=== PATIENT | male | born 1955 | race Caucasian/White ===

== ENCOUNTER 2020-12-26 08:56 | Outpatient (REF) | payer MEDICARE, OTHER, SELFPAY ==
[2020-12-26 12:04] LABS: Estimated Average Glucose 212 mg/dL
[2020-12-26 12:54] LABS: Alanine Aminotransferase 27 U/L (0-40); Albumin Level 4.3 g/dL (3.5-5.0); Alkaline Phosphatase 71 U/L (39-117); Anion Gap 12 (12-20); Aspartate Amino Transferase 27 U/L (5-37); Bilirubin Total 0.7 mg/dL (0.0-1.0); Blood Urea Nitrogen 30 mg/dL (9-16); Calcium 9.8 mg/dL (8.4-10.2); Carbon Dioxide 29 mmol/L (22-29); Chloride 104 mmol/L (96-108); Cholesterol 250 mg/dL; Estimated Glomerular Filt Rate > 60; Glucose Fasting 239 mg/dL (60-99); HDL Cholesterol 55 mg/dL; LDL Cholesterol Calculated 183 mg/dl; Potassium 5.2 mmol/L (3.3-5.1); Sodium 140 mmol/L (135-145); Triglycerides 63 mg/dL
[2020-12-26 13:03] LABS: Prostate Specific Antigen Scr 2.61 ng/mL (<0.05-4.0); TSH reflex Free T4 1.94 uIU/mL (0.32-4.0)
== END 2020-12-26 08:57 | disposition home or self-care (01) ==
LOC: HO.WFDLDS 08:56
PROVIDERS: Visit Provider Family Medicine
DX: Z00.00 Encounter for general adult medical examination without abnormal findings (principal); E11.9 Type 2 diabetes mellitus without complications; Z12.5 Encounter for screening for malignant neoplasm of prostate
CPT/HCPCS: 36415; 80053; 80061; 83036; 84153; 84443

== ENCOUNTER → 2021-01-07 14:01 | Outpatient (BNVA) | payer MEDICARE, SELFPAY | PROVIDERS: PCP Family Medicine; Visit Provider Surgery | DX: K43.2 Incisional hernia without obstruction or gangrene (principal); K40.90 Unilateral inguinal hernia, without obstruction or gangrene, not specified as recurrent | CPT/HCPCS: 99202 ==

== ENCOUNTER 2021-01-21 06:02 | Inpatient (IN) | payer MEDICARE, OTHER, SELFPAY ==
[2021-01-15 14:06] VITALS: BMI 27.8
--- NOTE | 2021-01-20 08:50 | HO.ANESPROP2 ---
Documented by User: Gale Lima 01/20/21 08:52 HPI - Anesthesia Eval Consult details Narrative: 65yo M for Left Incisional & Inguinal Hernia Repairs PMFSH Active Problems Active Problems: All Active Problems (Updated 01/07/21 @ 14:39 by Hieu Palomo MD) Screening for prostate cancer (Acute) Screening for colon cancer (Acute) Laboratory examination ordered as part of a routine general medical examination (Acute) Diabetes (Acute) Ventral hernia (Acute) Inguinal hernia, left (Acute) Incisional hernia (Acute) Essential hypertension (Acute) Hyperlipidemia (Acute) Insulin dependent diabetes mellitus (Acute) Past Medical History Medical History Essential hypertension Hyperlipidemia Insulin dependent diabetes mellitus Surgical History Surgical History H/O right inguinal hernia repair H/O splenectomy (2018) History of pancreatectomy (2018) Hx of cholecystectomy Social History Social History Alcohol intake: current Alcohol intake frequency: holidays/special occasions only Smoking Status: Never smoker Use of substances other than those prescribed or required for medical reasons: No Advance Directives Information Provided: No Meds Allergies Allergy/AdvReac Type Severity Reaction Status Date / Time No Known Allergies Allergy Verified 01/21/21 06:19 [No Known Allergies*] Exam Exam Date and Time: January 20, 2021 0850 Height,Weight and Vital Signs: Height 5 ft 8 in Weight 83.007 kg Pertinent Lab Results Pertinent Lab Results: Laboratory Tests 07/06/19 12/26/20 08:25 09:15 WBC 11.2 H Hgb 14.7 D Hct 45.7 Plt Count TNP Sodium 140 Potassium 5.2 H Chloride 104 Carbon Dioxide 29 BUN 30 H Creatinine 1.09 Assessment and Plan Assessment Anesthesia Assessment: Chart Reviewed Documented by User: Wanda Gregory 01/21/21 07:43 PMFSH Past Medical History Medical History Essential hypertension Hyperlipidemia Insulin dependent diabetes mellitus Surgical History Surgical History H/O right inguinal hernia repair H/O splenectomy (2018) History of pancreatectomy (2018) Hx of cholecystectomy Social History Social History Alcohol intake: current Alcohol intake frequency: holidays/special occasions only Smoking Status: Never smoker Use of substances other than those prescribed or required for medical reasons: No Advance Directives Information Provided: No Meds Allergies Allergy/AdvReac Type Severity Reaction Status Date / Time No Known Allergies Allergy Verified 01/21/21 06:19 [No Known Allergies*] Exam Airway Mallampati Class: II TM Dist: >3cm Neck ROM: Full Loose/Missing/Broken Teeth: No Heart: RRR Lungs: CTA Assessment and Plan Assessment Anesthesia Assessment: Anesthesia Plan Discussed and Chart Reviewed Final Anesthetic Review NPO: Yes ASA Class: II Final Preanesthetic Review: Meds/Allgs Chart Reviewed, Consent Obtained/Reviewed and Anes Risks/Benef Reviewed Patient Risk: Low Procedure Risk: Low Anesthetic Plan Anesthetic Plan: GA Disposition: Standard PACU
[2021-01-21] VITALS (11 sets, daily range): BP systolic 109–138; BP diastolic 65–85; PULSE 64–88; RESP 16–20; TEMP 35.9–37; O2SAT 95–100
[2021-01-21 06:31] LABS: Glucose, Whole Blood 66 mg/dL (60-115)
[2021-01-21 06:38] LABS: COVID-19 Test Negative (Negative)
[2021-01-21] MEDS: Lactated Ringers 1,000 ML 100 ML IVCONT (06:38)
--- NOTE | 2021-01-21 07:09 | MHC.SHP ---
Pre-Procedural Eval Section A The patient is an INPATIENT: No Changes since office visit: Yes Patient answered all questions; No Cold of Flu in the past 2 weeks, No New Medical Problems and No Changes in Medication The History & Physical has been completed within 30 days and I have reviewed it.: Yes Section B Chief Complaint: S/p incisional and left inguinal hernia repair Allergies: Allergies Allergy/AdvReac Type Severity Reaction Status Date / Time No Known Allergies Allergy Verified 01/21/21 06:19 [No Known Allergies*] Plan Diagnosis/Plan: Unchanged I have reviewed the history and physical and performed a pertinent physical examination on my patient. No changes have occurred unless specified.
[2021-01-21] MEDS: Dextrose 5 % 1,000 ML 250 ML IVCONT (07:15)
--- NOTE | 2021-01-21 09:25 | W.PM.OPN ---
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 Patient also has a new left inguinal hernia which is reducible. He has a previous history of a right inguinal hernia which was previously repaired. Operative findings: Patient was found to have a 4 cm incisional hernia in the upper abdomen as well as an indirect hernia the left side. Specimen: Lipoma of the cord and left hernia sac. Estimated blood loss: 10 mL Complications: None Procedure details: Patient was brought to the OR and placed in a supine position. After administering general anesthesia the patient's abdomen was prepped with ChloraPrep and draped in a sterile fashion. A surgical time-out was called the consent confirmed. Patient received preoperative antibiotics and Venodyne boots were in place. Beginning in the left inguinal hernia local anesthesia was infiltrated over the left inguinal ligament. Incision was then made with a scalpel carried out through subcutaneous tissue past Nevaeh's fashion up to the external oblique aponeurosis. Additional local was infiltrated into the inguinal canal. The incision was made in the external oblique aponeurosis. This was then widened with Metzenbaum scissors. Spermatic cord was dissected from the inguinal canal and retracted using a [place] drain. A large indirect hernia was identified with a large lipoma of the cord. The lipoma was dissected free from the surrounding skin cord structures ligated with a 3-0 Polysorb suture and excised. This was sent to pathology. Fibers of the cremasteric muscle were then and a hernia sac identified. This was a large indirect hernia sac which was lysed down to the internal ring. The sac was entered and the contents reduced. The sac was then ligated with a 0 Polysorb suture and the sac excised. This was also sent as a pathology specimen. Attention was then directed to the floor of the inguinal canal. Fibers of the internal oblique and transversalis aponeurosis were then incised with electrocautery. The preperitoneal space was then entered. This was then widened with a open Ray-Waylon. A large PHS mesh was then obtained. The circular underlay was placed into the preperitoneal space and deployed. They overlay was then secured to the pubic tubercle conjoined tendon and shelving edge of the inguinal ligament using a 0 Polysorb suture. A slit was made in the mesh and wrapped around the spermatic cord at the internal ring. This was then secured to the shelving edge of the inguinal ligament. Wounds were then irrigated with saline solution suctioned dry. Additional local was infiltrated at this time. External oblique aponeurosis was then closed using a running 2 0 Polysorb suture. Nevaeh's fascia and dermis were reapproximated using interrupted 3-0 Polysorb sutures. Skin was then closed using a running subcuticular 4 0 Polysorb suture. Attention was then directed to the incisional hernia located above the umbilicus. The previous midline incision was reopened at the lower aspect just above the umbilicus. This was carried out through subcutaneous tissue up to the hernia sac. The hernia sac was then dissected circumferentially down to the fascial edge. The fascia was then dissected free from the hernia sac and a preperitoneal space created using both blunt and electrocautery dissection. The space was measured and an 8 cm round Ventralex mesh determined to be the appropriate size. This was deployed into the preperitoneal space and secured in 4 quadrants using a 1 Tycron suture. The fascia was then closed over the mesh using [id number] Tycron sutures. The mesh was incorporated in the closure. The wounds were then irrigated with saline solution and suctioned dry. Deep subcutaneous tissue and dermis were then reapproximated using interrupted 3 0 Polysorb sutures. Skin was then closed using a running subcuticular 4 0 Polysorb suture. Wounds were dressed using Steri-Strips 4 x 4 gauze and Tegaderm. The patient tolerated the procedure well. Sponge, instrument, needle counts reported as correct. The patient was transferred to PACU in stable condition.
[2021-01-21 09:33] LABS: Glucose, Whole Blood 126 mg/dL (60-115)
[2021-01-21] MEDS: Sodium Chloride 0.45 % 1,000 ML 80 ML IVCONT ×2 (11:15→22:04)
[2021-01-21 11:22] LABS: Glucose, Whole Blood 134 mg/dL (60-115)
[2021-01-21] MEDS: oxyCODONE HCl Immed Release 5 MG TABLET PO (13:26)
[2021-01-21 16:28] LABS: Glucose, Whole Blood 243 mg/dL (60-115)
[2021-01-21] MEDS: Insulin Lispro 100 UNIT/ML 3 ML VIAL SUBCUT ×2 (16:41→22:03)
[2021-01-21 20:37] LABS: Glucose, Whole Blood 246 mg/dL (60-115)
[2021-01-21] MEDS: Atorvastatin Calcium 20 MG TABLET PO (22:03)
[2021-01-22 03:40] VITALS: BP 107/60; PULSE 59; RESP 16; TEMP 37; O2SAT 97
[2021-01-22 08:00] VITALS: BP 128/82; PULSE 66; RESP 18; TEMP 36.9; O2SAT 96
[2021-01-22 08:43] LABS: Glucose, Whole Blood 133 mg/dL (60-115)
[2021-01-22 10:19] VITALS: BP 128/82; PULSE 66
[2021-01-22] MEDS: lisinopriL 5 MG TABLET PO (10:19)
--- NOTE | 2021-01-22 13:32 | P.DS_ITS ---
DS: Providers Provider Date of Service: 01/22/21 Date of admission: 01/21/21 06:02 Date of discharge: 01/22/21 Primary care physician: Jerry De Leon MD Admitting clinician: Hieu Palomo Discharging clinician: Hieu Palomo DS: Diagnosis Discharge Diagnosis (1) Ventral hernia: Status: Acute (2) Inguinal hernia, left: Status: Acute DS: Medications Discharge Medications Home Medications: Previous Rx's Medication Instructions Recorded blood sugar diagnostic #200 ea 12/23/20 lancets 28 gauge #200 ea 12/23/20 atorvastatin 20 mg tablet 20 mg PO QPM 30 Days #30 tab 12/30/20 lisinopril 5 mg tablet 5 mg PO DAILY 90 Days #90 tab 12/30/20 pen needle, diabetic 32 gauge x #100 ea 12/30/2010/13 pen needle, diabetic 32 gauge x #50 ea 12/30/2010/13 glipizide 5 mg tablet 5 mg PO .B.i.d. with meal 30 Days 01/20/21 #60 tab insulin glargine 100 unit/mL (3 18 unit SUBCUT QPM 30 Days #6 ml 01/20/21 mL) subcutaneous pen oxycodone 5 mg PO Q6H PRN #14 tab 01/22/21 DS: Summary Hospital Course Hospital Course: 65-year-old male patient with a previous history of a right inguinal hernia repaired on 05/10/2016, status post subtotal pancreatectomy and splenectomy (pancreatitis) through a trapdoor incision in the upper abdomen now presenting with a lump in the upper midline incision and left groin. The hernia is been present for approximately 2 years and has increased in size. He is wearing a binder which helps to some degree but feels the hernias increasing in size and pain. He is requesting repair. He denies nausea, vomiting, fever, chills, diarrhea, or constipation. He is now a diabetic due to the pancreatectomy. He was scheduled as a short-stay admit on 01/21/2021 for repair of the incisional and left inguinal hernia with mesh. He tolerated the procedure well and was admitted overnight for pain control. He remained hemodynamically stable with good pain control. On postoperative day 1. The patient was awake and alert, comfortable on oral pain medication without nausea or vomiting. He was tolerating a regular diet. Patient is to be discharged to home on 01/22/2021. Instructions were to avoid lifting greater than 10 lb for the next month. He may resume regular diet. He should avoid driving for the next week. I have asked him to return to the office in approximately 1 week for wound check. He should also call for fevers, chills, nausea, vomiting, increased abdominal pain, or other concerns. Patient expressed understanding and agrees with the plan. Time Spent with Patient Time attestation: Total time spent providing and/or coordinating discharge services: Discharge coordination time: Less than 30 minutes Physical Exam 2 Vital Signs: Vital Signs: Last Vital Signs Temp 98.4 F 01/22/21 08:00 Pulse 66 01/22/21 10:19 Resp 18 01/22/21 08:00 BP 128/82 01/22/21 10:19 Pulse Ox 96 01/22/21 08:00 Body Mass Index 27.8 Const: General: cooperative, healthy appearing, comfortable, no acute distress and well developed HENMT: Head: Yes normocephalic and Yes atraumatic Resp: Effort & Inspection: normal respiratory effort, not labored, no stridor and not tachypneic Auscultation: no rales GI: Other: Abdomen soft with incisional tenderness. Wounds are clean, dry, and intact with intact dressings. No erythema is appreciated. Skin: Other: Warm, dry, no rash Extrem: General: Yes no clubbing, cyanosis or edema DS: Data Data Completed and Pending Completed studies during hospitalization [Text1]: Pending at discharge 01/21/21 08:54 Surgical [PTH] Routine Labs on day of discharge: Laboratory Results - last 24 hr 01/21/21 01/21/21 01/22/21 16:20 20:26 08:38 POC Glucose 243 H 246 H 133 H Discharge Plan Discharge Patient Disposition: Home, Self-Care Discharge Diagnosis: Incisional hernia, left inguinal hernia status post repair with mesh Referrals: Jerry De Leon MD [Primary Care Provider] - 1 Week Hieu Palomo MD [Physician] - 1 Week Discharge Medications: New oxycodone 5 mg tablet 5 mg PO Q6H PRN (Reason: pain) Qty: 14 RF: 0 Continued (DME) FreeStyle Lite Strips Strip See Rx Instructions .ROUTE .MEDSUPPLY Qty: 200 RF: 4 (DME) lancets [FreeStyle Lancets] 28 gauge misc See Rx Instructions .ROUTE .MEDSUPPLY Qty: 200 RF: 4 lisinopril 5 mg tablet 5 mg PO DAILY 90 Days Qty: 90 RF: 3 (DME) pen needle, diabetic [BD Ultra-Fine Micro Pen Needle] 32 gauge x 1/4 needle See Rx Instructions .ROUTE .MEDSUPPLY Qty: 100 RF: 3 (DME) pen needle, diabetic [BD Ultra-Fine Micro Pen Needle] 32 gauge x 1/4 needle See Rx Instructions .ROUTE .MEDSUPPLY Qty: 50 RF: 0 atorvastatin 20 mg tablet 20 mg PO QPM 30 Days Qty: 30 RF: 3 Lantus Solostar U-100 Insulin 100 unit/mL (3 mL) insulin pen 18 unit subcut QPM 30 Days Qty: 6 RF: 4 glipizide 5 mg tablet 5 mg PO .B.i.d. with meal 30 Days Qty: 60 RF: 2 Discharge Orders: Discharge Order (Routine); Ordered 01/22/21 Ordered By: Hieu Palomo Diet: regular diet Activity on Discharge: No heavy lifting Stand Alone Forms: Patient Portal Discharge page Care Plan Goals: Returned to normal activity and normal diet in 1 month Health Concerns: Incisional hernia, left inguinal hernia Plan of Treatment: Status post repair of incisional hernia and inguinal hernia left side with mesh Assessment: Left inguinal hernia and incisional hernia Discharge Date/Time: 01/22/21 11:38
--- NOTE | 2021-01-22 14:39 | MHC.CM.PN ---
NURSE CYLINDER LOADER NOTE ELECTRONIC MEDICAL RECORD REVIEW MET WITH PATIENT AND EXPLAINED THE ROLE FOR THE NURSE CYLINDER LOADER, PATIENT LIVES WITH HIS HE IS RETIRED AND IS ACTIVE , INDEPENDENT IN ALL ADLS AND MOBILITY WITHOUT ANY DEVICE HE HAS NO VNA , NO DME SERVICES IN THE HOME. SHE DENIES ANYU FINANCAIL CONCERNS REGARDING HAVING ANY SCRIPTS FILLE. HE ANTICIPATED BEING DISCHARGED HOME TODAY AND WITH NO SERVICES DISCHARGE PLAN HOME NO SERVCIES PCP PATIENT TO CALL FOR [facility] DISCHARGE FOLLOW UP SURGICAL FOLLOW UP PER DIASCHARGE INSTRUCTIONS. TRANSP-FAMILY .
--- NOTE | 2021-01-23 09:51 | HO.POSTANES ---
Post Anesthesia Evaluation Post Anesthesia Evaluation Anesthesia: General Mental Status: Awake Pain Control: Satisfactory Nausea/Vomiting: None Hydration: Adequate Anesthesia-Related Issues: No Anes. Related Issues
== END 2021-01-22 11:38 | disposition home or self-care (01) | DRG 352 ==
LOC: HO.SSSA 06:09 → HO.S3 09:49
PROVIDERS: Admitting Provider Surgery; PCP Family Medicine; Visit Provider Surgery
PROC: 0YU60JZ Supplement Left Inguinal Region with Synthetic Substitute, Open Approach (ICD-10-PCS; principal; 2021-01-21 07:30)
DX: K43.2 Incisional hernia without obstruction or gangrene (principal); K40.90 Unilateral inguinal hernia, without obstruction or gangrene, not specified as recurrent; E78.5 Hyperlipidemia, unspecified; I10 Essential (primary) hypertension; E11.9 Type 2 diabetes mellitus without complications; Z20.822 Contact with and (suspected) exposure to COVID-19; Z79.4 Long term (current) use of insulin; Z79.899 Other long term (current) drug therapy
CPT/HCPCS: 36415; 82947; 87635; 88302; 88304; C1781; J0690; J1100; J1170; J2250; J2405; J3010

== ENCOUNTER → 2021-01-30 14:21 | Outpatient (BNVA) | payer MEDICARE, SELFPAY | PROVIDERS: PCP Family Medicine; Visit Provider Surgery | DX: Z48.815 Encounter for surgical aftercare following surgery on the digestive system (principal); Z87.19 Personal history of other diseases of the digestive system | CPT/HCPCS: 99211 ==

== ENCOUNTER → 2021-03-03 10:26 | Outpatient (BNVA) | payer MEDICARE, SELFPAY | PROVIDERS: PCP Family Medicine; Referring Provider Family Medicine; Visit Provider Surgery | DX: K40.90 Unilateral inguinal hernia, without obstruction or gangrene, not specified as recurrent (principal); K43.2 Incisional hernia without obstruction or gangrene | CPT/HCPCS: 99212 ==

== ENCOUNTER 2021-10-20 09:51 | Outpatient (REF) | payer MEDICARE, MEDICAID, SELFPAY ==
[2021-10-20 10:09] LABS: Binax Internal Control QC Valid; Binax Now Covid-19 Ag Positive (Negative)
== END 2021-10-20 09:52 | disposition home or self-care (01) ==
LOC: HO.HMGCLDS 09:51
PROVIDERS: Visit Provider Nurse Practitioner Family
DX: Z13.89 Encounter for screening for other disorder (principal)

== ENCOUNTER 2021-11-12 14:45 | Outpatient (REF) | payer MEDICARE, MEDICAID, SELFPAY ==
--- NOTE | ~2021-11-12 | XR_ITS ---
EXAMINATION: XR CHEST CLINICAL INFORMATION: Cough COMPARISON: 10/02/2018 TECHNIQUE: 2 views of the chest were obtained. FINDINGS: Mild elevation of the left hemidiaphragm. Blunting at the left costophrenic angle is likely associated with pleural thickening is no effusion is seen on the lateral view. Patchy hazy opacities are seen in both lungs. No pneumothorax. The cardiomediastinal silhouette is within normal limits of size with a tortuous aorta. XR/XR chest 2V IMPRESSION: Hazy bilateral airspace opacities could be infectious or inflammatory.
== END 2021-11-12 14:46 | disposition home or self-care (01) ==
LOC: HO.XRAY 14:45
PROVIDERS: PCP Family Medicine; Visit Provider Family Medicine
DX: R05.9 Cough, unspecified (principal); Z20.822 Contact with and (suspected) exposure to COVID-19
CPT/HCPCS: 71046; U0003; U0005

== ENCOUNTER 2022-05-08 17:06 | Emergency (ER) | payer MEDICARE, MEDICAID, SELFPAY ==
--- NOTE | ~2022-05-08 | XR_ITS ---
EXAMINATION: XR HAND/WRIST, RIGHT CLINICAL INFORMATION: Fall COMPARISON: None TECHNIQUE: PA, lateral, and oblique views of the right hand and wrist. FINDINGS: The bones and soft tissues are normal. No fracture. Alignment is anatomic. Joint spaces are maintained. No erosions or soft tissue calcifications. XR/XR hand wrist RT IMPRESSION: Normal radiographs of the hand and wrist.
--- NOTE | ~2022-05-08 | XR_ITS ---
EXAMINATION: XR KNEE, LEFT CLINICAL INFORMATION: Mechanical fall COMPARISON: None TECHNIQUE: Four views of the left knee. FINDINGS: There is a lucency within the lateral aspect of the patella. There is a small suprapatellar joint effusion. There is significant narrowing of the medial or lateral compartments. XR/XR knee LT 3V IMPRESSION: Small suprapatellar joint effusion. Lucency in the lateral aspect of the patella may represent an acute fracture, but may be a normal variant/chronic. Consider CT for further evaluation if warranted.
[2022-05-08 17:15] VITALS: BP 127/89; PULSE 93; RESP 18; TEMP 36.2; O2SAT 97; BMI 26.7
--- NOTE | 2022-05-08 21:09 | ED.LOWEXIN ---
HPI - Extremity Injury (Lower) General Chief Complaint: Extremity Injury, Lower Stated Complaint: Fall/Leg pain Time Seen by Provider: 05/08/22 21:09 Source: patient Mode of arrival: ambulatory Limitations: no limitations History of Present Illness MD complaint: other (wrist/knee injury) Onset (ago): minute(s) (prior to arrival) Injury: Left: knee Type of Injury: blunt Place: street/outdoors Severity: moderate Relieving factors: immobilization Exacerbating factors: weight bearing and palpation Context: fall and direct blow Associated symptoms: swelling Other symptoms: none Treatments prior to arrival: cold therapy Related Data Previous Rx's Medication Instructions Recorded blood sugar diagnostic (FreeStyle #200 ea 12/23/20 Lite Strips) lisinopril 5 mg tablet 5 mg PO DAILY 90 days #90 tabs 12/30/20 pen needle, diabetic 32 gauge x #50 ea 12/30/20 1/4 (BD Ultra-Fine Micro Pen Needle) albuterol sulfate 90 mcg/actuation 2 puff inhalation Q4-6H PRN 02/01/22 aerosol inhaler (ProAir HFA) shortness of breath or wheezing 30 days #8.5 grams insulin glargine 100 unit/mL (3 18 unit (0.18 mL) subcut QPM 30 02/01/22 mL) subcutaneous pen (Lantus days #6 mL Solostar U-100 Insulin) pen needle, diabetic 32 gauge x #100 ea 02/01/22 1/4 (BD Ultra-Fine Micro Pen Needle) lancets 28 gauge (FreeStyle #200 ea 02/04/22 Lancets) Allergies Allergy/AdvReac Type Severity Reaction Status Date / Time No Known Allergies Allergy Verified 05/08/22 17:14 [No Known Allergies*] Review of Systems Review of Systems: Constitutional : No Fever, No Chills ENT/Mouth : No Ear Pain, No Hoarseness, No sore throat Cardiovascular : No Chest Pain, No SOB Respiratory : No Cough, No Dyspnea Gastrointestinal : No Nausea, No Vomiting, No Diarrhea, No abdominal Pain Genitourinary : No Dysuria, No Hematuria Musculoskeletal : positive joint pain, No Myalgias, pos Joint Swelling Skin : No Skin lacerations, No rash Neuro : No Weakness, No Numbness, No Loss of Consciousness, No Dizziness, No Headache PMF Past Medical History Attestation statement: The following information was validated with the patient. Medical History Essential hypertension Hyperlipidemia Insulin dependent diabetes mellitus Surgical History H/O right inguinal hernia repair H/O splenectomy (2018) History of hernia surgery History of pancreatectomy (2018) Hx of cholecystectomy Incisional hernia Inguinal hernia, left Social History Social History Alcohol intake: current Alcohol intake frequency: holidays/special occasions only Patient Tobacco Use Status: Never used Tobacco Advance Directives: No Advance Directives Information Provided: No service: No Physical Exam Vital Signs: Vital Signs: Last Vital Signs Temp 97.2 F 05/08/22 17:15 Pulse 93 05/08/22 17:15 Resp 18 05/08/22 17:15 BP 127/89 05/08/22 17:15 Pulse Ox 97 05/08/22 17:15 O2 Del Method 05/08/22 17:15 BMI result Body Mass Index 26.7 Appearance: Alert. Oriented X3. No acute distress. Eyes: Pupils equal, round and reactive to light. ENT: Pharynx normal. Neck: Normal inspection. Neck supple. CVS: Normal heart rate and rhythm. Pulses normal. Respiratory: No respiratory distress. Breath sounds normal. Abdomen: Soft and nontender. Skin: Skin warm and dry. Normal skin color. Normal skin turgor. Extremities: No lower extremity edema. R wrist no scaphoid ttp but ttp along ventral surface of wrist with mild swelling distal NV intact, L knee small suprapatella knee effusion - distal NV intact, small abrasion over patella, quadricep tendon intact can make full muscle no divot felt Neuro: Oriented X 3. No motor deficit. No sensory deficit. MDM - Extremity Injury (Lower) MDM Narrative Medical decision making narrative: 66 yo male with hx of DM, HTN, prior COVID - mechanical fall resulting in injuries to R wrist/hand and L knee - distal NV Intact no head/neck pain. He has xrays negative except for possible L patella injury/fx - will place in immobilizer. The patient will not be able to use crutches given R wrist sprain - toe touch weight bearing and follow up with PCP repeat films in 5 days Procedures Orthopedic Splinting/Casting Injury #1: Side: left Lower Extremity Injury Location: knee Lower Extremity Immobilizer: knee immobilizer Discharge Plan Discharge Clinical Impression: Right wrist sprain, Injury of left patella, Effusion of left knee Patient Disposition: Home, Self-Care Instructions: Swollen Joint (ED), Wrist Sprain (ED), Sprain (ED) Additional Instructions: return to ED for any worsening symptoms or concerns wear immobilizer until repeat xrays done in 5 days can do with primary care doctor toe touch weight bearing only - no flexion ice, elevated, rest and use motrin/tylenol for pain subtle lucency seen on left patella - possible fracture Prescriptions: No Action Lantus Solostar U-100 Insulin 100 unit/mL (3 mL) insulin pen 18 unit subcut QPM 30 Days Qty: 6 4RF albuterol sulfate [ProAir HFA] 90 mcg/actuation HFA aerosol inhaler 2 puff inhalation Q4-6H PRN (Reason: shortness of breath or wheezing) 30 Days Qty: 8.5 0RF (DME) pen needle, diabetic [BD Ultra-Fine Micro Pen Needle] 32 gauge x 1/4 needle See Rx Instructions .ROUTE .MEDSUPPLY Qty: 100 3RF Rx Instructions: Dx: E11.9, Daily to treat Blood sugar, 90 day supply (DME) lancets [FreeStyle Lancets] 28 gauge misc See Rx Instructions .ROUTE .MEDSUPPLY Qty: 200 4RF Rx Instructions: As directed (DME) FreeStyle Lite Strips Strip See Rx Instructions .ROUTE .MEDSUPPLY Qty: 200 4RF Rx Instructions: DX: E11.9, test blood sugar twice a day, 90 days lisinopril 5 mg tablet 5 mg PO DAILY 90 Days Qty: 90 3RF (DME) pen needle, diabetic [BD Ultra-Fine Micro Pen Needle] 32 gauge x 1/4 needle See Rx Instructions .ROUTE .MEDSUPPLY Qty: 50 0RF Rx Instructions: As directed Referrals: Jerry De Leon MD [Primary Care Provider] - 5 days (repeat xrays of left patella)
== END 2022-05-08 21:57 | disposition home or self-care (01) ==
PROVIDERS: Emergency Provider Emergency Medicine; PCP Family Medicine
DX: S63.501A Unspecified sprain of right wrist, initial encounter (principal); S89.92XA Unspecified injury of left lower leg, initial encounter; W10.1XXA Fall (on)(from) sidewalk curb, initial encounter; M25.462 Effusion, left knee; E11.9 Type 2 diabetes mellitus without complications; I10 Essential (primary) hypertension; E78.5 Hyperlipidemia, unspecified; Y93.01 Activity, walking, marching and hiking; Y92.480 Sidewalk as the place of occurrence of the external cause; Y99.9 Unspecified external cause status; Z79.4 Long term (current) use of insulin
CPT/HCPCS: 73110; 73130; 73562; 99282; 99283

== ENCOUNTER 2022-05-14 10:30 | Outpatient (REF) | payer MEDICARE, MEDICAID, SELFPAY ==
--- NOTE | ~2022-05-14 | XR_ITS ---
EXAMINATION: XR KNEE, LEFT CLINICAL INFORMATION: Follow-up patellar lucency COMPARISON: 05/08/2022 TECHNIQUE: Four views of the left knee. FINDINGS: Trace residual joint effusion effusion. The effusion has decreased compared to 05/08/2022. Persistent soft tissue swelling in the prepatellar region. Again noted is a vertical lucency and mild fragmentation in the lateral patella. The borders of the lucency are irregular. Therefore, this is not convincingly a normal variant bipartite patella. Instead, given history of fall and soft tissue swelling, finding is suspicious for recent patellar fracture. It is also possible that the patient had an underlying bipartite patella that became more fragmented or slightly after trauma. Small osteophytes are present at patellofemoral and tibiofemoral compartments. XR/XR knee LT 3V IMPRESSION: * Mild tricompartmental osteoarthritis of the left knee. * Interval improvement of previously observed knee joint effusion. * Persistent prepatellar soft tissue swelling and fracture/fragmented appearance of lateral patella. Correlate for pain in this specific area.
== END 2022-05-14 10:31 | disposition home or self-care (01) ==
LOC: HO.XRAY 10:30
PROVIDERS: PCP Family Medicine; Visit Provider Family Medicine
DX: M25.562 Pain in left knee (principal)
CPT/HCPCS: 73562

== ENCOUNTER 2022-05-26 07:25 | Outpatient (REF) | payer MEDICARE, MEDICAID, SELFPAY ==
--- NOTE | ~2022-05-26 | XR_ITS ---
EXAMINATION: XR KNEE, LEFT CLINICAL INFORMATION: Pain. COMPARISON: Left knee 05/14/2022 TECHNIQUE: Two views of the left knee. FINDINGS: There is moderate loss of patellofemoral compartment joint space with small superior and large medial compartment enthesophyte with small suprapatellar joint effusion. No fracture acute or loose body seen. XR/XR knee LT 2V IMPRESSION: Small suprapatellar joint effusion with degenerative arthritic changes and spurring patellofemoral compartment.
== END 2022-05-26 07:26 | disposition home or self-care (01) ==
LOC: HO.HOSX 07:25
PROVIDERS: Visit Provider Physician Assistant
DX: S82.002A Unspecified fracture of left patella, initial encounter for closed fracture (principal); W18.09XA Striking against other object with subsequent fall, initial encounter; Y93.9 Activity, unspecified; Y92.9 Unspecified place or not applicable; Y99.9 Unspecified external cause status
CPT/HCPCS: 73560; 99202

== ENCOUNTER 2022-06-23 09:38 | Outpatient (REF) | payer MEDICARE, MEDICAID, SELFPAY ==
--- NOTE | ~2022-06-23 | XR_ITS ---
EXAMINATION: XR KNEE, LEFT CLINICAL INFORMATION: Pain in left knee. COMPARISON: X-ray of the left knee May 2022. TECHNIQUE: Four views of the left knee. FINDINGS: Small marginal osteophytes about the patella. Medial and lateral compartments are normal. No effusion. XR/XR knee LT 2V IMPRESSION: Mild osteoarthritis of the patellofemoral joint, unchanged.
== END 2022-06-23 09:39 | disposition home or self-care (01) ==
LOC: HO.HOSX 09:38
PROVIDERS: Visit Provider Physician Assistant
DX: M25.562 Pain in left knee (principal)
CPT/HCPCS: 73560

== ENCOUNTER 2022-07-22 08:37 | Outpatient (REF) | payer MEDICARE, SELFPAY ==
[2022-07-22 09:20] LABS: Basophils Absolute Auto 0.1 X10*3/uL (0.0-0.2); Basophils Percent Auto 0.8 % (0-2); Eosinophils Absolute Auto 0.2 X10*3/uL (0.0-0.4); Eosinophils Percent Auto 1.4 % (0-4); Hematocrit 42.9 % (42.0-52.0); Hemoglobin 14.3 g/dl (14.0-18.0); Imm Gran Abs Auto 0.05 X10*3/uL (0.00-0.03); Imm Gran Pct Auto 0.5 % (0.0-0.4); Lymphocytes Absolute Auto 1.6 X10*3/uL (1.2-4.9); Lymphocytes Percent Auto 15.2 % (20-40); MANUAL DIFF FLAG SCAN; Mean Corpuscular HGB Conc 33.3 g/dl (31.0-36.0); Mean Corpuscular Hemoglobin 30.4 pg (27.0-33.0); Mean Corpuscular Volume 91.1 fL (80.0-98.0); Monocytes Absolute Auto 0.9 X10*3/uL (0.1-1.2); Monocytes Percent Auto 8.7 % (2-11); Neutrophils Absolute Auto 7.7 x10*3/uL (2.0-8.3); Neutrophils Percent Auto 73.4 % (45-73); PLT CLUMP 1; Red Blood Count 4.71 X10*6/uL (4.60-5.80); Red Cell Distribution Width 14.8 % (11.0-16.0); SCAN SMEAR FLAG 1
[2022-07-22 09:24] LABS: White Blood Count 10.5 X10*3/uL (4.8-10.8)
[2022-07-22 09:59] LABS: SLIDE REVIEW VERIFIED
[2022-07-22 10:09] LABS: Alanine Aminotransferase 23 U/L (0-40); Albumin Level 4.1 g/dL (3.5-5.0); Alkaline Phosphatase 63 U/L (39-117); Anion Gap 13 (12-20); Aspartate Amino Transferase 23 U/L (5-37); Bilirubin Total 0.4 mg/dL (0.0-1.0); Blood Urea Nitrogen 27 mg/dL (9-16); Calcium 9.7 mg/dL (8.4-10.2); Carbon Dioxide 28 mmol/L (22-29); Chloride 105 mmol/L (96-108); Cholesterol 218 mg/dL; Estimated Glomerular Filt Rate > 60; Glucose Fasting 180 mg/dL (60-99); HDL Cholesterol 60 mg/dL; LDL Cholesterol Calculated 151 mg/dl; Sodium 141 mmol/L (135-145); Total Protein 6.6 g/dL (6.5-8.0); Triglycerides 39 mg/dL
[2022-07-22 10:20] LABS: Prostate Specific Antigen Scr 2.02 ng/mL (<0.05-4.0); TSH reflex Free T4 2.35 uIU/mL (0.32-4.0)
[2022-07-22 11:07] LABS: Appearance Urine Clear; Color Urine Yellow; Glucose Urine UA Negative (Negative); Leukocyte Esterase Urine Negative (Negative); Nitrite Urine Negative (Negative); PH 5.5 (5.0-9.0); Specific Gravity - Urine 1.025 (1.005-1.025); Urine Blood Negative (Negative); Urine Ketones Negative (Negative); Urine Protein Negative (Neg-Trace)
[2022-07-22 11:43] LABS: Creatinine Urine 124.38 mg/dL; Microalbum/Creatinine Ratio Ur 6.4 ug/mg cr
== END 2022-07-22 08:38 | disposition home or self-care (01) ==
LOC: HO.LAB 08:37
PROVIDERS: PCP Family Medicine; Visit Provider Family Medicine
DX: Z00.00 Encounter for general adult medical examination without abnormal findings (principal); I10 Essential (primary) hypertension; Z12.5 Encounter for screening for malignant neoplasm of prostate
CPT/HCPCS: 36415; 80053; 80061; 81003; 82043; 84153; 84443; 85025

== ENCOUNTER 2022-08-04 | Outpatient (REF) | payer MEDICARE, MEDICAID, SELFPAY ==
--- NOTE | ~2022-08-04 | XR_ITS ---
EXAMINATION: XR KNEE, LEFT CLINICAL INFORMATION: Pain COMPARISON: Left knee x-rays June 23, 2022 TECHNIQUE: Two views of the left knee. FINDINGS: No fracture or dislocation. Tiny suprapatellar joint effusion. Joint spaces are well-maintained. Tiny tricompartmental marginal osteophytes. Similar bipartite appearance of the patella. No focal soft tissue swelling of the anterior knee. XR/XR knee LT 2V IMPRESSION: Mild degenerative changes of the left knee with a tiny suprapatellar joint effusion.
== END 2022-08-04 00:01 | disposition home or self-care (01) ==
LOC: HO.HOSX
PROVIDERS: Visit Provider Physician Assistant
DX: M25.562 Pain in left knee (principal)
CPT/HCPCS: 73560

== ENCOUNTER 2023-08-02 08:59 | Outpatient (AMB) | payer MEDICARE, MEDICAID, SELFPAY ==
--- NOTE | 2023-08-02 09:10 | A.OFFPC_ITS ---
Vital Signs 08/02/23 09:11 Height 5 ft 8 in Weight 182 lb BMI 27.7 BP 134/78 Blood Pressure Location Lt brachial Position Sitting Pulse 62 Pulse Source Pulse Oximeter Pulse Oximetry (%) 99 Oxygen Delivery Method Room Air Intake Visit Reasons: Annual physical exam Intake Note: Patient is here for his physical today, and is concerned about black around his finger nails. Patient would like refills on Losartan, Freestyle Lite strips, and /bd ultra fine needles, and albuterol inhaler. Patient's last A1C was 9.46 on 06/28/23 and is scanned into his chart. Hospital Staff Pharmacist Required: No Accompanied by: Self / Same As Patient Allergies No Known Allergies [No Known Allergies*] Allergy (Verified 08/02/23 09:13) Tobacco use date assessed: 08/02/23 Fall risk assessment: No Falls in past year Last assessed Fall Risk: 08/02/23 Dental Screening Dental Screen Date: 08/02/23 Did you have a dental visit in the last 12 months?: Yes Did you have a dental problem in the last 6 months where you did not have access to dental care?: No Was dental information given to patient?: Patient has dentist HPI Encounter for annual physical exam HPI Details 68 y/o male presents for a CPE with f/u labs and health maintenance. No recent labs to review. Last A1c 9.5% in June. He is on insulin glargine 26 units. He reports he has not tried any other medication. Blood pressure today 134/78. He is on losartan 50mg daily. Pt reports an ongoing cough. Pt reports a ? fungal infection of his nail. Pt notes he had a cologuard test done about a month and a half ago which came out fine. 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 Kenny Chun, Cathi Stanton, Jason Padilla and colleagues, with an educational fly from [employer]. Review of Systems Const Denies chills, Denies fatigue, Denies fever(s), Denies headache(s) and Denies weakness Eyes Denies change in vision ENT Denies dizziness, Denies headache(s), Denies hearing loss, Denies nasal congestion, Denies sinus pain, Denies sinus pressure and Denies sore throat Card Denies chest pain, Denies lightheadedness, Denies dyspnea and Denies other (palpitations) Resp Reports cough, Denies dyspnea and Denies wheezing GI Denies abdominal pain, Denies melena, Denies hematochezia, Denies change in bowel habits, Denies dyspepsia and Denies nausea Denies hematuria and Denies dysuria Musc Denies abnormal gait, Denies myalgias, Denies arthralgias, Denies numbness and Denies tingling Skin/Breast Denies rash, Denies unusual bruising and Denies wounds Neuro Denies abnormal gait, Denies dizziness, Denies headache(s), Denies memory loss, Denies numbness, Denies Sensory deficit (Neuro), Denies tingling and Denies weakness Psych Denies anxiety, Denies depression and Denies memory loss Endo Denies cold intolerance, Denies fatigue, Denies heat intolerance, Denies polydipsia and Denies polyuria Gal/Lymph Denies easy bleeding and Denies easy bruising Aller/Immun Denies wheezing Physical exam (Primary Care) Vital Signs: Last Vital Signs Pulse 62 08/02/23 09:11 BP 134/78 08/02/23 09:11 Pulse Ox 99 08/02/23 09:11 Oxygen Delivery Method Room Air 08/02/23 09:11 BMI result Body Mass Index 27.7 Tobacco/Smoking Status: Tobacco use Status Tobacco use date assessed 08/02/23 08/02/23 09:21 Patient Tobacco Use Status Never used Tobacco 08/02/23 09:15 e-Cigarette/Vaping Use Never Used 08/02/23 09:15 Const General: no acute distress, well developed, alert and awake Nutritional Appearance: well nourished Orientation/consciousness: patient oriented x3 HENMT Head: Yes normocephalic and Yes atraumatic Ears: hearing grossly normal bilaterally and TM's normal bilaterally General nose exam: Normal external nose present and Normal nares present Mouth: Normal oral and palatal mucosa present and moist mucous membranes Teeth and gingiva: dentition normal Throat: Yes posterior oropharynx normal Eyes General: appearance normal, both eyes and all related structures Pupils: Equal, round and reactive pupils present and Pupil accommodation reflex normal EOM: EOMs intact bilaterally Neck Neck: Yes normal visual inspection, Yes no lymphadenopathy and Yes trachea midline Thyroid: Thyroid normal Carotids: no bruits Lymphatic: no lymphadenopathy noted Chest Chest palpation & inspection: normal inspection of the chest Resp Effort & Inspection: normal respiratory effort Auscultation: clear to auscultation bilaterally Cardio Rate: regular rate Rhythm: regular rhythm Heart sounds: S1 normal heart sound present, S2 normal heart sound present, no gallops, no murmurs and no rubs Bruits: no abdominal aortic bruits and no carotid bruits GI Palpation (GI): No Abdominal aortic bruit present, Soft to palpation, nontender, No hepatosplenomegaly present and No Rebound tenderness present Auscultation: normal bowel sounds General: Yes no CVA tenderness Back/Spine/Pelvis Back: no CVA tenderness Cervical Spine: cervical ROM normal and No Cervical spine tenderness Thoracic/Lumbar Spine: thoraco-lumbar ROM normal, No pain with thoraco-lumbar ROM, No thoracic spinal tenderness and No lumbar spinal tenderness Skin Lesions: no lesions Rashes: no rashes Trauma: no lacerations or abrasions Wounds: no wounds Nails: normal Neuro General: patient oriented x3 Cranial nerves: Yes Equal, round and reactive pupils present Cognition (Neuro): normal cognition Gait exam (Neuro): Normal gait present Motor exam (neuro): 5/5 motor strength present throughout Sensory Exam: No Sensory deficit (Neuro) Deep tendon reflexes (DTR's): Right patellar reflex intensity grade: 2+ and Left patellar reflex intensity grade: 2+ Extrem General: Yes normal to inspection and No edema Psych Appearance: grossly normal Affect: normal affect Attitude: cooperative Thought process: Normal thought process present Assessment and Plan Assessment & Plan (1) Encounter for annual physical exam: Code(s): Z00.00 - Encounter for general adult medical examination without abnormal findings Plan: 68-year-old?male?presents?for?complete?physical?exam (2) Diabetes: Code(s): E11.9 - Type 2 diabetes mellitus without complications Plan: Uncontrolled?diabetes?with?an?A1c?of?9.5%?in?June. He?notes?that?his?morning?blood?sugars?are?around?114 No?change?to?Lantus?but?will?add?glipizide?which?he?can?take?just?prior?to?his?1 st?meal?of?the?day Continue?to?work?at?a?diabetic?diet?and?exercise (3) Essential hypertension: Code(s): I10 - Essential (primary) hypertension Plan: Blood?pressure?is?controlled?on?losartan.??Goal?is?less?than?140/90 Continue?current?medication?regimen (4) Cough: Code(s): R05.9 - Cough, unspecified Plan: Chronic?cough?for?which?we?had?switched?lisinopril?to?losartan. He?continues?to?have?a?chronic?cough Check?chest?x-ray Trial?omeprazole?to?rule?out?microaspiration?from?GERD If?not?improved?with?omeprazole?and?if?chest?x- ray?is?unrevealing,?will?refer?to?pulmonology (5) Screening for colon cancer: Code(s): Z12.11 - Encounter for screening for malignant neoplasm of colon Plan: Patient?notes?he?had?a?recent?Cologuard?which?was?negative.??Up-to-date. (6) Screening for prostate cancer: Code(s): Z12.5 - Encounter for screening for malignant neoplasm of prostate Plan: Check?PSA (7) Fungal infection of nail: Code(s): B35.1 - Tinea unguium Plan: Trial?antifungal?cream Work?at?better?blood?sugar?control If?not?improving,?will?refer?to?Dermatology Orders: Orders XR chest 2V Today R05.9 - Cough, unspecified Comprehensive Colman. Panel Fast Today Z00.00 - Encounter for general adult medical examination without abnormal findings Complete Blood Count Auto Diff Today Z00.00 - Encounter for general adult medical examination without abnormal findings Prostate Specific Antigen Scr Today Z12.5 - Encounter for screening for malignant neoplasm of prostate UA and rflx microscopic Today Z00.00 - Encounter for general adult medical examination without abnormal findings TSH reflex Free T4 Today Z00.00 - Encounter for general adult medical examination without abnormal findings Lipid Panel Today Z00.00 - Encounter for general adult medical examination without abnormal findings Microalbumin, Random (w Creat) Today I10 - Essential (primary) hypertension Medications: New glipizide 5 mg PO DAILY 30 days 30 tabs 3RF terbinafine HCl 1% 1 appl topical BID 30 grams 0RF 30 days omeprazole 20 mg PO DAILY 30 days 30 caps 1RF Refilled albuterol sulfate 90 mcg/actuation 2 puffs inhalation Q6H PRN 8.5 grams 0RF shortness of breath or wheezing pen needle, diabetic (BD Ultra-Fine Micro Pen Needle) Dx: E11.9, Daily to treat Blood sugar, 90 day supply 100 ea 3RF blood sugar diagnostic (FreeStyle Lite Strips) DX: E11.9, test blood sugar twice a day, 90 days 200 ea 4RF losartan 50 mg PO DAILY 30 days 30 tabs 2RF insulin glargine (Lantus Solostar U-100 Insulin) 26 units (0.26 mL) subcut QPM 30 days 9 mL 4RF Coding Level of Care Code Est Pt Level 4 (77875) Est Pt Prev Care >65y(24982) Diagnoses Encounter for annual physical exam Z00.00 Diabetes E11.9 Essential hypertension I10 Cough R05.9 Screening for colon cancer Z12.11 Screening for prostate cancer Z12.5 Fungal infection of nail B35.1
[2023-08-02 09:11] VITALS: BP 134/78; PULSE 62; O2SAT 99; BMI 27.7
== END 2023-08-02 10:11 | disposition home or self-care (01) ==
PROVIDERS: Visit Provider Family Medicine
DX: Z00.00 Encounter for general adult medical examination without abnormal findings (principal); E11.9 Type 2 diabetes mellitus without complications; I10 Essential (primary) hypertension; R05.9 Cough, unspecified; B35.1 Tinea unguium
CPT/HCPCS: 99397

== ENCOUNTER 2023-08-16 13:47 | Outpatient (REF) | payer MEDICARE, MEDICAID, SELFPAY ==
--- NOTE | ~2023-08-16 | XR_ITS ---
EXAMINATION: XR CHEST CLINICAL INFORMATION: Cough COMPARISON: Chest radiograph from 11/12/2021 TECHNIQUE: 2 views of the chest were obtained. FINDINGS: Stable blunting left costophrenic recess likely representing scarring/pleural thickening. Left basilar atelectasis. Slight interstitial prominence. No pneumothorax. Trachea is midline. Cardiomediastinal silhouette is stable. Osseous structures are intact. Soft tissues are unremarkable. Surgical clips in the left upper abdomen. XR/XR chest 2V IMPRESSION: 1. Stable blunting left costophrenic recess likely representing scarring/pleural thickening. 2. Left basilar atelectasis. 3. Slight interstitial prominence.
== END 2023-08-16 13:48 | disposition home or self-care (01) ==
LOC: HO.HMGCX 13:47
PROVIDERS: PCP Family Medicine; Visit Provider Family Medicine
DX: R05.9 Cough, unspecified (principal)
CPT/HCPCS: 71046

== ENCOUNTER 2023-09-06 07:49 | Outpatient (REF) | payer MEDICARE, SELFPAY ==
[2023-09-06 08:09] LABS: MANUAL DIFF FLAG NO
[2023-09-06 08:46] LABS: Basophils Absolute Auto 0.1 X10*3/uL (0.0-0.2); Basophils Percent Auto 0.9 % (0-2); Eosinophils Absolute Auto 0.2 X10*3/uL (0.0-0.4); Hematocrit 43.3 % (42.0-52.0); Hemoglobin 14.5 g/dl (14.0-18.0); Imm Gran Abs Auto 0.02 X10*3/uL (0.00-0.03); Imm Gran Pct Auto 0.3 % (0.0-0.4); Lymphocytes Absolute Auto 1.9 X10*3/uL (1.2-4.9); Lymphocytes Percent Auto 24.9 % (20-40); Mean Corpuscular HGB Conc 33.5 g/dl (31.0-36.0); Mean Corpuscular Hemoglobin 30.4 pg (27.0-33.0); Mean Corpuscular Volume 90.8 fL (80.0-98.0); Monocytes Absolute Auto 0.8 X10*3/uL (0.1-1.2); Monocytes Percent Auto 11.1 % (2-11); NRBC Pct Auto 0.5 /100WBC (0.0-0.2); Neutrophils Absolute Auto 4.6 x10*3/uL (2.0-8.3); Neutrophils Percent Auto 60.8 % (45-73); Red Blood Count 4.77 X10*6/uL (4.60-5.80); Red Cell Distribution Width 15.1 % (11.0-16.0); White Blood Count 7.6 X10*3/uL (4.8-10.8)
[2023-09-06 09:21] LABS: Alanine Aminotransferase 31 U/L (0-40); Alkaline Phosphatase 60 U/L (39-117); Anion Gap 9 (12-20); Aspartate Amino Transferase 30 U/L (5-37); Bilirubin Total 0.6 mg/dL (0.0-1.0); Blood Urea Nitrogen 20 mg/dL (9-16); Calcium 9.2 mg/dL (8.4-10.2); Carbon Dioxide 29 mmol/L (22-29); Chloride 109 mmol/L (96-108); Cholesterol 211 mg/dL (<200); Estimated Glomerular Filt Rate > 60; Glucose Fasting 115 mg/dL (60-99); HDL Cholesterol 56 mg/dL (>40); LDL Cholesterol Calculated 146 mg/dL (<100); Potassium 4.3 mmol/L (3.3-5.1); Sodium 143 mmol/L (135-145); Total Protein 6.8 g/dL (6.5-8.0); Triglycerides 49 mg/dL (<150)
[2023-09-06 09:29] LABS: Prostate Specific Antigen Scr 3.55 ng/mL (<0.05-4.0)
[2023-09-06 09:39] LABS: TSH reflex Free T4 3.46 uIU/mL (0.32-4.0)
[2023-09-06 10:17] LABS: Appearance Urine Clear; Color Urine Dark Yellow; Glucose Urine UA 250 mg/dL (Negative); Leukocyte Esterase Urine Negative (Negative); Nitrite Urine Negative (Negative); PH 5.5 (5.0-9.0); Specific Gravity - Urine >= 1.030 (1.005-1.025); Urine Blood Negative (Negative); Urine Ketones Negative (Negative); Urine Protein Trace mg/dL (Neg-Trace)
[2023-09-06 10:50] LABS: Creatinine Urine 208.13 mg/dL; Microalbum/Creatinine Ratio Ur 21.1 ug/mg cr (<30)
== END 2023-09-06 07:50 | disposition home or self-care (01) ==
LOC: HO.LAB 07:49
PROVIDERS: PCP Family Medicine; Visit Provider Family Medicine
DX: Z00.00 Encounter for general adult medical examination without abnormal findings (principal); Z12.5 Encounter for screening for malignant neoplasm of prostate; I10 Essential (primary) hypertension
CPT/HCPCS: 36415; 80053; 80061; 81003; 82043; 82570; 84153; 84443; 85025

== ENCOUNTER 2023-09-09 15:38 | Outpatient (AMB) | payer MEDICARE, SELFPAY ==
--- NOTE | 2023-09-09 14:47 | A.OFFPC_ITS ---
Vital Signs 09/09/23 14:47 Height 5 ft 8 in Intake Visit Reasons: f/u CPE-labs Intake Note: Patient is following up on blood work and x-ray. Allergies No Known Allergies [No Known Allergies*] Allergy (Verified 09/09/23 15:34) Tobacco use date assessed: 09/09/23 HPI f/u CPE-labs HPI Details 68 y/o male presents to f/u CPE-labs via telemedicine. Labs were drawn 09/06/23. Reviewed labs with pt. Triglycerides 49. TC 211. LDL 146. HDL 56. He is on artovastatin 20mg. Pt has had complaints of a chronic cough. Chest x-ray 08/16/23 showed: 1. Stable blunting left costophrenic recess likely representing scarring/pleural thickening. 2. Left basilar atelectasis. 3. Slight interstitial prominence HPI Comments History of Present Illness Details Documentation assistance for Jerry De Leon MD, was provided by Morales Kennedy, [employer] on 09/09/2023 4:00 PM EST. I, Dr. De Leon, have read, observed, and verified documentation. 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 Kenny Chun, Cathi Stanton, Jason Padilla and colleagues, with an educational fly from [employer]. Review of Systems Const Denies chills, Denies fatigue, Denies fever(s), Denies headache(s) and Denies weakness ENT Denies dizziness and Denies headache(s) Card Denies dyspnea Resp Denies cough, Denies dyspnea, Denies wheezing and Denies other (shortness of breath) Musc Denies numbness and Denies tingling Neuro Denies dizziness, Denies headache(s), Denies numbness, Denies tingling and Chai es weakness Psych Denies anxiety and Denies depression Endo Denies fatigue Aller/Immun Denies wheezing Physical exam (Primary Care) Tobacco/Smoking Status: Tobacco use Status Tobacco use date assessed 09/09/23 09/09/23 15:36 Patient Tobacco Use Status Never used Tobacco 09/09/23 14:48 e-Cigarette/Vaping Use Never Used 09/09/23 14:48 Telehealth Telehealth Location of provider rendering services: practice address Location of patient: address on file Patient Identification confirmed using: Name, : Yes Telehealth method: voice only Patient verbally consented to treatment: Yes Patient verbally consented to billing insurance company: Yes Patient informed of any privacy concerns related to visit: Yes Minutes spent on Phone/Video with Pt.: 12 Assessment and Plan Assessment & Plan (1) Hyperlipidemia: Code(s): E78.5 - Hyperlipidemia, unspecified Plan: Lipids?are?elev ated?and?LDL?is?above?goal?of?less?than?100?for?patient?with?diabetes. Patient?will?trial?atorvastatin?20?mg?daily?we?discussed?that?he?may?need?more?l flavio?40?mg?daily Will?recheck?lipids?prior?to?his?next?visit?in?about?3?months (2) Chronic cough: Code(s): R05.3 - Chronic cough Plan: Ongoing?chronic?cough.??Chest?x-ray?shows?interstitial?prominence Had?given?him?a?trial?of?omeprazole?and?he?says?it?has?improved?but?has?not?this ?appeared Referred?to?pulmonology (3) Screening for colon cancer: Code(s): Z12.11 - Encounter for screening for malignant neoplasm of colon Plan: Pat ient?had?Cologuard?test?and?results?still?have?not?arrive.??I?have?asked?the?off ice?to?get?results. Orders: Referrals Pulmonology Referral R05.3 - Chronic cough Medications: Refilled atorvastatin 20 mg PO BEDTIME 30 tabs 1RF 30 days Coding Level of Care Code Tele Est Pt Level 2 (99059) Diagnoses Hyperlipidemia E78.5 Chronic cough R05.3 Screening for colon cancer Z12.11
== END 2023-09-09 16:45 | disposition home or self-care (01) ==
LOC: HO.HMGFM 15:38
PROVIDERS: PCP Family Medicine; Visit Provider Family Medicine
DX: E78.5 Hyperlipidemia, unspecified (principal); R05.3 Chronic cough; Z12.11 Encounter for screening for malignant neoplasm of colon
CPT/HCPCS: G2252

== ENCOUNTER 2023-11-03 14:39 | Outpatient (AMB) | payer MEDICARE, MEDICAID, SELFPAY ==
[2023-11-03 14:46] VITALS: BP 110/70; PULSE 89; O2SAT 98; BMI 27.1
--- NOTE | 2023-11-03 14:46 | MHC.OFFVIS ---
Intake Vital Signs 11/03/23 14:46 Height 5 ft 8 in Weight 178 lb BMI 27.1 BP 110/70 Blood Pressure Location Lt brachial Position Sitting Pulse 89 Pulse Source Pulse Oximeter Pulse Oximetry (%) 98 Oxygen Delivery Method Room Air Intake Visit Reasons: Cough Allergies No Known Allergies [No Known Allergies*] Allergy (Verified 11/03/23 14:49) HPI HPI Comments History of Present Illness Details The patient is here for pulmonary evaluation. The patient is a 68-year-old gentleman presenting with a chronic cough. Apparently he was in his usual state health until back in 2019 when he started developing severe abdominal discomfort. He was evaluated that [place] initially. He did undergo a cholecystectomy for suspected cholecystitis but then presented back again with necrotic pancreatitis. He was then referred transferred to [facility] where he is spent many weeks. The patient did require surgery for the necrosis. He still has some sequelae from that issue. At that point he was having a cough. The cough is nonproductive in nature. He did have a CT scan at that time demonstrating atelectasis of the left lower lobe. No clear explanation for the findings. The patient denies any choking or any previous pneumonia. The patient seems to think that was related to the time he was in the ICU intubated. The patient ultimately was not a blood pressure medication lisinopril was taken off it and placed on ARB. Still persistent cough. He did have a chest x-ray again demonstrating a elevated left hemidiaphragm with some pleural thickening and atelectasis in therefore he was referred to Pulmonary. We did review all the imaging studies. He does not have any wheezing. Does not have any pulmonary function studies to review. He did have an inhaler but did not find very helpful. He only found helpful actually when he had COVID-19 and use a few times. Denies any exposure to any fumes or toxins. He is currently retired and the patient does have couple dogs and a couple cats. Denies any mold exposures. Based on the atelectasis will go ahead and start him on Acapella valve for CPT twice a day. Patient can also try some [id number] or as needed prescription cough medication. Will plan to request a CT scan of the chest to better address the abnormal chest x-ray. 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) H/O right inguinal hernia repair Inguinal hernia, left Social History Housing: House Alcohol intake: current Alcohol intake frequency: holidays/special occasions only Patient Tobacco Use Status: Never used Tobacco e-Cigarette/Vaping Use: Never Used Second Hand Smoke Exposure: No service: No Current occupational status: retired Current occupation: rt hand Current occupational exposures/hazards: No Cognitive needs: No Hearing needs: No Vision needs: No Review of Systems Const Denies chills, Denies fatigue, Denies fever(s), Denies headache(s) and Denies weakness ENT Denies dizziness and Denies headache(s) Card Denies dyspnea Resp Reports cough, Denies dyspnea, Denies wheezing and Denies other (shortness of breath) Musc Denies numbness and Denies tingling Neuro Denies dizziness, Denies headache(s), Denies numbness, Denies tingling and Denies weakness Psych Denies anxiety and Denies depression Endo Denies fatigue Aller/Immun Denies wheezing Physical Exam Vital Signs: Last Vital Signs Pulse 89 11/03/23 14:46 BP 110/70 11/03/23 14:46 Pulse Ox 98 11/03/23 14:46 Oxygen Delivery Method Room Air 11/03/23 14:46 BMI result Body Mass Index 27.1 Const General: cooperative and healthy appearing Nutritional Appearance: well nourished Orientation/consciousness: patient oriented x3 Limitations: no limitations HEENT Head: Yes normal to inspection Eyes General: appearance normal, both eyes and all related structures Neck Neck: Yes normal visual inspection Chest Chest palpation & inspection: normal palpation of entire chest wall Resp Effort & Inspection: normal respiratory effort Auscultation: diminished lung sounds Neuro General: patient oriented x3 Assessment & Plan Assessment & Plan (1) Chronic cough: Code(s): R05.3 - Chronic cough (2) Standard chest x-ray abnormal: Code(s): R93.89 - Abnormal findings on diagnostic imaging of other specified body structures (3) Atelectasis: Code(s): J98.11 - Atelectasis Plan CT chest to address symptom and abnormal CXR Benzonates as needed start Acapella for CPT plan to do spirometry when he returns F/U 6-8 weeks Orders: Orders CT chest wo IV con Today R05.3 - Chronic cough, R93.89 - Abnormal findings on diagnostic imaging of other specified body structures Medications: New benzonatate 200 mg PO BID PRN 30 caps 0RF cough 30 days Coding Level of Care Code New Pt Level 4 (23175) Diagnoses Chronic cough R05.3 Standard chest x-ray abnormal R93.89 Atelectasis J98.11 Time Spent (min) 40
== END 2023-11-03 15:13 | disposition home or self-care (01) ==
PROVIDERS: PCP Family Medicine; Referring Provider Family Medicine; Visit Provider Hospitalist
DX: R05.3 Chronic cough (principal); R93.89 Abnormal findings on diagnostic imaging of other specified body structures; J98.11 Atelectasis
CPT/HCPCS: 99204

== ENCOUNTER → 2023-11-03 14:39 | Outpatient (BNVA) | payer MEDICARE, SELFPAY | PROVIDERS: PCP Family Medicine; Referring Provider Family Medicine; Visit Provider Hospitalist | DX: R93.89 Abnormal findings on diagnostic imaging of other specified body structures (principal); R05.3 Chronic cough; J98.11 Atelectasis | CPT/HCPCS: 99202 ==

== ENCOUNTER 2023-11-17 10:54 | Outpatient (AMB) | payer MEDICARE, MEDICAID, SELFPAY ==
--- NOTE | 2023-11-17 11:07 | A.OFFVIS_ITS ---
Intake Vital Signs 3 11/17/23 11:13 Height 5 ft 8 in Weight 182 lb 8 oz BMI 27.7 BP 132/83 Blood Pressure Location Lt brachial Position Sitting Pulse 74 Intake Visit Reasons: Umbilical hernia Intake Note: Patient is seen in office for evaluation of an umbilical hernia. Patient c/o: feel a lump for the past 4 months, denies increase, nausea, vomit, diarrhea, constipation, had prior surgery in the abdomen 2019 Medical Support Specialist Required: No Accompanied by: Self / Same As Patient Allergies No Known Allergies [No Known Allergies*] Allergy (Verified 11/17/23 11:12) Medication List - Last Reconciled 11/17/23 by Hieu Palomo MD albuterol sulfate 90 mcg/actuation 2 puffs inhalation Q6H PRN atorvastatin 20 mg PO BEDTIME 30 days benzonatate 200 mg PO BID PRN 30 days blood sugar diagnostic (Capsule.fmuch Verio test strips) Test blood sugar twice a day. As directed. 90 days glipizide 5 mg PO DAILY 30 days insulin glargine (Lantus Solostar U-100 Insulin) 26 units (0.26 mL) subcut QPM 30 days lancets (FreeStyle Lancets) As directed losartan 50 mg PO DAILY 30 days omeprazole 20 mg PO DAILY 30 days pen needle, diabetic (BD Ultra-Fine Micro Pen Needle) As directed pen needle, diabetic (BD Ultra-Fine Micro Pen Needle) Dx: E11.9, Daily to treat Blood sugar, 90 day supply terbinafine HCl 1% 1 appl topical BID 30 days HPI HPI Comments 2 History of Present Illness0 Details 68-year-old male patient returning for e valuation of a new hernia located in the upper abdomen to the right of midline noted for the past 4 months. He denies any pain associated with this lump does note the lump to increase in size with lifting and straining. He denies nausea, vomiting, fever or chills. He is previously underwent an incisional hernia repair as well as inguinal hernia repair but feels this is in a new area. He recently sold his house in the area and will be moving to [place] near [place]. He needs to do some moving and wanted to have the hernia checked to see if it is okay to avoid surgery at this time. 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) H/O right inguinal hernia repair Inguinal hernia, left Social History Housing: House Alcohol intake: current Alcohol intake frequency: holidays/special occasions only Patient Tobacco Use Status: Never used Tobacco e-Cigarette/Vaping Use: Never Used Second Hand Smoke Exposure: No service: No Current occupational status: retired Current occupation: rt hand Current occupational exposures/hazards: No Cognitive needs: No Hearing needs: No Vision needs: No Review of Systems Const Denies anorexia, Denies chills, Denies fever(s), Denies night sweats and Reports weight loss Card Denies chest pain, Denies edema, Denies irregular heart rhythm and Denies dyspnea Resp Denies cough, Denies hemoptysis, Denies excessive phlegm production and Denies dyspnea GI Reports abdominal pain, Denies bloating, Denies constipation, Denies diarrhea, Denies loose stools, Denies nausea and Denies vomiting Reports no additional complaints Skin/Breast Denies bleeding lesions and Denies new lesions Neuro Reports no additional complaints Gal/Lymph Denies lymphadenopathy Physical Exam Vital Signs: Last Vital Signs Pulse 74 11/17/23 11:13 BP 132/83 11/17/23 11:13 BMI result Body Mass Index 27.7 Const General: cooperative, healthy appearing, comfortable and no acute distress GI Other: Soft, nondistended, well-healed midline and left inguinal incision. Palpable hernia noted to the right of midline in the upper abdomen measuring approximately 1.5 cm in diameter. The hernia increases in size with Valsalva maneuvers but easily is reduced with light pressure. There is no tenderness to palpation. (see image below). Abdomen image: 2 1. 2. Site of hernia Skin General skin exam: no rashes or lesions noted Extrem General: Yes no clubbing, cyanosis or edema Assessment & Plan Assessment & Plan (1) Incisional hernia: Code(s): K43.2 - Incisional hernia without obstruction or gangrene Qualifiers: Obstruction and gangrene presence: without obstruction or gangrene Qualified Code(s): K43.2 - Incisional hernia without obstruction or gangrene Plan 68-year-old male patient returning for evaluation of a new hernia occurring in the right upper quadrant abdomen. He denies any symptoms associated with the hernia and feels the hernia is been present for least 4 months. He has planning a move to [place] and would like to avoid undergoing surgery at this time. On examination he does have a small reducible hernia with a defect of approximately 1.5 cm. The hernia is nontender to palpation. He can certainly avoid surgery at this time as long as he remains asymptomatic. I did recommend wearing an abdominal binder, which he reports already purchasing, especially when doing heavy lifting while moving. He is welcome to return for any changes in his symptoms. Expressed understanding and agrees with the plan. Coding Level of Care Code Est Pt Level 3 (08173) Diagnoses Incisional hernia, without obstruction or gangrene K43.2 Obstruction and gangrene presence: without obstruction or gangrene
[2023-11-17 11:13] VITALS: BP 132/83; PULSE 74; BMI 27.7
== END 2023-11-17 11:27 | disposition home or self-care (01) ==
PROVIDERS: PCP Family Medicine; Referring Provider Family Medicine; Visit Provider Surgery
DX: K43.2 Incisional hernia without obstruction or gangrene (principal)
CPT/HCPCS: 99213

== ENCOUNTER → 2023-11-17 10:54 | Outpatient (BNVA) | payer MEDICARE, SELFPAY | PROVIDERS: PCP Family Medicine; Referring Provider Family Medicine; Visit Provider Surgery | DX: K43.2 Incisional hernia without obstruction or gangrene (principal) | CPT/HCPCS: 99212 ==

== ENCOUNTER 2023-11-23 07:18 | Outpatient (REF) | payer MEDICARE, MEDICAID, SELFPAY ==
--- NOTE | ~2023-11-23 | CT_ITS ---
EXAMINATION: CT CHEST WITHOUT CONTRAST CLINICAL INFORMATION: Stable blunting of left costophrenic angle left base atelectasis and interstitial prominence on recent chest radiograph. COMPARISON: None available. TECHNIQUE: Multidetector volumetric CT imaging of the chest was done. Axial MIP volume rendering provided. Sagittal and coronal reformatted images were obtained. This CT examination was performed using dose optimization techniques as appropriate, variously including the following: *Automated exposure control *Adjustment of mA and/or kV according to patient size (this includes techniques or standardized protocols for targeted exams where dose is matched to indication/reason for exam; i.e. extremities or head) *Use of iterative reconstruction technique DLP: 214 mGy-cm FINDINGS: SUPERVISOR POST WAVE: There is dextroscoliosis of thoracic spine with degenerative spondylosis. LUNGS: There are no lung nodules. There are linear atelectasis seen bibasilar. There are mild changes of centrilobular emphysema. No evidence of consolidations. Central airways are patent. MEDIASTINUM: There is no mediastinal or hilar lymphadenopathy. The thoracic aorta is ectatic measured 3.9 x 3.7 cm. There is no pericardial effusion. CORONARY ARTERY CALCIFICATION: Mild coronary artery calcifications present PLEURA: There is no pleural effusion. No pleural mass or thickening. AXILLA: No lymphadenopathy. UPPER ABDOMEN: Gallbladder is surgically absent. There are a few very small low-attenuation lesions in the dome of the liver most likely cysts. Patient is status post splenectomy OSSEOUS STRUCTURES: There are mild changes of degenerative spondylosis and dextroscoliosis. CT/CT chest wo IV con IMPRESSION: 1. Mild changes of centrilobular emphysema. No evidence of interstitial lung disease. 2. Ectasia of ascending aorta. 3. Status post cholecystectomy and splenectomy. 4. Small low-attenuation lesions in the dome of the liver most likely cysts. Fleischner guidelines were followed.
== END 2023-11-23 07:19 | disposition home or self-care (01) ==
LOC: HO.CT 07:18
PROVIDERS: PCP Family Medicine; Visit Provider Hospitalist
DX: R93.89 Abnormal findings on diagnostic imaging of other specified body structures (principal); R05.3 Chronic cough
CPT/HCPCS: 71250

== ENCOUNTER 2024-01-06 13:57 | Outpatient (REF) | payer MEDICARE, SELFPAY | END 2024-01-06 13:58 | disposition home or self-care (01) | LOC: HO.XRAY 13:57 | PROVIDERS: PCP Family Medicine; Visit Provider Hospitalist | DX: R05.3 Chronic cough (principal); R93.89 Abnormal findings on diagnostic imaging of other specified body structures; J98.11 Atelectasis | CPT/HCPCS: 99212 ==

== ENCOUNTER 2024-01-06 13:57 | Outpatient (AMB) | payer MEDICARE, MEDICAID, SELFPAY ==
[2024-01-06 14:16] VITALS: PULSE 84; O2SAT 96; BMI 26.8
--- NOTE | 2024-01-06 14:16 | MHC.OFFVIS ---
Intake Vital Signs 01/06/24 14:16 Height 5 ft 8 in Weight 176 lb BMI 26.8 Pulse 84 Pulse Source Pulse Oximeter Pulse Oximetry (%) 96 Oxygen Delivery Method Room Air Intake Visit Reasons: Cough Forestry Extension Specialist Required: No Allergies No Known Allergies [No Known Allergies*] Allergy (Verified 01/06/24 14:17) HPI HPI Comments History of Present Illness Details The patient is a 68-year-old gentleman presenting with a chronic cough. Apparently he was in his usual state health until back in 2019 when he started developing severe abdominal discomfort. He was evaluated that Juan initially. He did undergo a cholecystectomy for suspected cholecystitis but then presented back again with necrotic pancreatitis. He was then referred transferred to [facility] where he is spent many weeks. The patient did require surgery for the necrosis. He still has some sequelae from that issue. At that point he was having a cough. The cough is nonproductive in nature. He did have a CT scan at that time demonstrating atelectasis of the left lower lobe. No clear explanation for the findings. The patient denies any choking or any previous pneumonia. The patient seems to think that was related to the time he was in the ICU intubated. The patient ultimately was not a blood pressure medication lisinopril was taken off it and placed on ARB. Still persistent cough. He did have a chest x-ray again demonstrating a elevated left hemidiaphragm with some pleural thickening and atelectasis in therefore he was referred to Pulmonary. We did review all the imaging studies. He does not have any wheezing. Does not have any pulmonary function studies to review. He did have an inhaler but did not find very helpful. He only found helpful actually when he had COVID-19 and use a few times. Denies any exposure to any fumes or toxins. He is currently retired and the patient does have couple dogs and a couple cats. Denies any mold exposures. Based on the atelectasis will go ahead and start him on Acapella valve for CPT twice a day. Patient can also try some [id number] or as needed prescription cough medication. Will plan to request a CT scan of the chest to better address the abnormal chest x-ray. 01/06/2024 the patient is here for a pulmonary follow-up visit. The patient continues to have a cough. Productive in nature. Moderate severity. He does have the rescue therapy and also the Acapella valve although he does not use it regularly. He has not noticed any significant improvement in the cough. The patient does have some reflux disease. I do believe that it may be related to underlying micro aspirations and pharyngeal laryngeal penetration. Will request a barium swallow. Better aeration will also try to provide a sputum culture in order to see if there is a smoldering infection. His CT scan of the chest that he had back in November was reassuring without any evidence of any nodular densities or concerning findings. He did have some emphysema some evidence of chronic bronchitis, however. 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) H/O right inguinal hernia repair Inguinal hernia, left Social History Housing: House Alcohol intake: current Alcohol intake frequency: holidays/special occasions only Patient Tobacco Use Status: Never used Tobacco e-Cigarette/Vaping Use: Never Used Second Hand Smoke Exposure: No service: No Current occupational status: retired Current occupation: rt hand Current occupational exposures/hazards: No Cognitive needs: No Hearing needs: No Vision needs: No Review of Systems Const Denies chills, Denies fatigue, Denies fever(s), Denies headache(s) and Denies weakness ENT Denies dizziness and Denies headache(s) Card Denies dyspnea Resp Reports cough, Denies dyspnea, Denies wheezing and Denies other (shortness of breath) Musc Denies numbness and Denies tingling Neuro Denies dizziness, Denies headache(s), Denies numbness, Denies tingling and Denies weakness Psych Denies anxiety and Denies depression Endo Denies fatigue Aller/Immun Denies wheezing Physical Exam Vital Signs: Last Vital Signs Pulse 84 01/06/24 14:16 Pulse Ox 96 01/06/24 14:16 Oxygen Delivery Method Room Air 01/06/24 14:16 BMI result Body Mass Index 26.8 Const General: cooperative and healthy appearing Nutritional Appearance: well nourished Orientation/consciousness: patient oriented x3 Limitations: no limitations HEENT Head: Yes normal to inspection Eyes General: appearance normal, both eyes and all related structures Neck Neck: Yes normal visual inspection Chest Chest palpation & inspection: normal palpation of entire chest wall Resp Effort & Inspection: normal respiratory effort Auscultation: diminished lung sounds Neuro General: patient oriented x3 Assessment & Plan Assessment & Plan (1) Chronic cough: Code(s): R05.3 - Chronic cough (2) Standard chest x-ray abnormal: Code(s): R93.89 - Abnormal findings on diagnostic imaging of other specified body structures (3) Atelectasis: Code(s): J98.11 - Atelectasis Plan Start Symbicort sputum culture barium swallow Benzonates as needed Acapella for CPT plan to do spirometry when he returns F/U 6-8 weeks Orders: Orders [place] barium swallow 01/06/24 K21.9 - Gastro-esophageal reflux disease without esophagitis Sputum Cult + Gram stain 01/06/24 R05.3 - Chronic cough Medications: New budesonide-formoterol 160-4.5 mcg/actuation (Symbicort) 2 puffs inhalation BID 30 days 10.2 grams 11RF J44.89 - Other specified chronic obstructive pulmonary disease Coding Level of Care Code Est Pt Level 4 (13838) Diagnoses Chronic cough R05.3 Standard chest x-ray abnormal R93.89 Atelectasis J98.11 Time Spent (min) 16
== END 2024-01-06 14:59 | disposition home or self-care (01) ==
PROVIDERS: PCP Family Medicine; Visit Provider Hospitalist
DX: R05.3 Chronic cough (principal); R93.89 Abnormal findings on diagnostic imaging of other specified body structures; J98.11 Atelectasis
CPT/HCPCS: 99214

== ENCOUNTER 2024-03-29 14:28 | Outpatient (AMB) | payer MEDICARE, MEDICAID, SELFPAY ==
[2024-03-29 14:34] VITALS: BP 132/82; PULSE 104; O2SAT 94; BMI 26.9
--- NOTE | 2024-03-29 14:34 | MHC.PC.OV ---
Vital Signs 03/29/24 14:34 Height 5 ft 8 in Weight 177 lb 2 oz BMI 26.9 BP 132/82 Blood Pressure Location Lt brachial Position Sitting Pulse 104 H Pulse Source Pulse Oximeter Pulse Oximetry (%) 94 Oxygen Delivery Method Room Air Intake Visit Reasons: f/u chronic conditions Intake Note: Patient is here requesting refills because he is moving.to [place]. He would refill of Losartan 50 mg, and Lantus pens and needles, 31 gauge. Allergies No Known Allergies [No Known Allergies*] Allergy (Verified 03/29/24 14:37) Medication List - Last Reconciled 03/29/24 by Jerry De Leon MD albuterol sulfate 90 mcg/actuation 2 puffs inhalation Q6H PRN blood sugar diagnostic ([employer]uch Verio test strips) Test blood sugar twice a day. As directed. 90 days budesonide-formoterol 160-4.5 mcg/actuation (Symbicort) 2 puffs inhalation BID 30 days glipizide 5 mg PO DAILY 30 days insulin glargine (Lantus Solostar U-100 Insulin) 26 units (0.26 mL) subcut QPM 30 days lancets (FreeStyle Lancets) As directed losartan 50 mg PO DAILY 30 days omeprazole 20 mg PO DAILY 30 days pen needle, diabetic (BD Ultra-Fine Micro Pen Needle) As directed pen needle, diabetic (BD Ultra-Fine Micro Pen Needle) Dx: E11.9, Daily to treat Blood sugar, 90 day supply Tobacco use date assessed: 03/29/24 Fall risk assessment: No Falls in past year Last assessed Fall Risk: 03/29/24 Dental Screening Dental Screen Date: 08/02/23 Did you have a dental visit in the last 12 months?: Yes Did you have a dental problem in the last 6 months where you did not have access to dental care?: No Was dental information given to patient?: Patient has dentist HPI f/u chronic conditions HPI Details 68 y/o male presents to f/u chronic conditions. No recent labs to review for his lipids. A1c today 03/29/24 is 10.2%. He continues to take his lantus 26 units and glipizide as prescribed. He reports morning blood sugars in the mid 100s. Blood pressure today 132/82, 104p. He is on losartan 50mg daily. 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 Kenny Chun, Cathi Stanton, Jason Padilla and colleagues, with an educational fly from [employer]. Review of Systems Const Denies chills, Denies fatigue, Denies fever(s), Denies headache(s) and Denies weakness ENT Denies dizziness and Denies headache(s) Card Denies dyspnea Resp Denies cough, Denies dyspnea, Denies wheezing and Denies other (shortness of breath) Musc Denies numbness and Denies tingling Neuro Denies dizziness, Denies headache(s), Denies numbness, Denies tingling and Denies weakness Psych Denies anxiety and Denies depression Endo Denies fatigue Aller/Immun Denies wheezing Physical exam (Primary Care) Vital Signs: Last Vital Signs Pulse 104 H 03/29/24 14:34 BP 132/82 03/29/24 14:34 Pulse Ox 94 03/29/24 14:34 Oxygen Delivery Method Room Air 03/29/24 14:34 BMI result Body Mass Index 26.9 Tobacco/Smoking Status: Tobacco use Status Tobacco use date assessed 03/29/24 03/29/24 14:44 Patient Tobacco Use Status Never used Tobacco 03/29/24 14:44 e-Cigarette/Vaping Use Never Used 03/29/24 14:44 Const General: well developed; No acute distress Nutritional Appearance: well nourished Orientation/consciousness: patient oriented x3 HENMT Head: Yes normocephalic and Yes atraumatic Eyes General: appearance normal, both eyes and all related structures Pupils: Equal, round and reactive pupils present EOM: EOMs intact bilaterally Resp Effort & Inspection: normal respiratory effort Neuro General: patient oriented x3 and gait normal Cranial nerves: Yes Equal, round and reactive pupils present Psych Affect: normal affect Results AMB Hemoglobin A1c AMB Hemoglobin A1c 10.2 % Last Edit by Linda Gupta CMA on 03/29/24 15:25 Assessment and Plan Assessment & Plan (1) Essential hypertension: Code(s): I10 - Essential (primary) hypertension Plan: Blood?pressure?is?controlled.??Goal?is?less?than?140/90 Continue?current?medication Recommended?watching?salt/sodium (2) Diabetes: Code(s): E11.9 - Type 2 diabetes mellitus without complications Plan: Uncontrolled?diabetes A1c?is?10.5% Increase?Lantus?from?26?units?daily?to?28?units?daily. Increase?glipizide?from?glipizide?5?mg?q.a.m.?to glipizide?ER?10?mg?q.a.m. Continue?working?at?a?diet?low?in?sugars?and?starches Follow-up?with?new?physician?in?[facility] Orders: Orders AMB Hemoglobin A1c Today Z13.9 - Encounter for screening, unspecified Medications: New glipizide ER 10 mg PO DAILY 90 days 90 tabs 2RF Changed From losartan 50 mg PO DAILY 30 days 30 tabs 2RF To losartan 50 mg PO DAILY 90 days 90 tabs 2RF From insulin glargine (Lantus Solostar U-100 Insulin) 26 units (0.26 mL) subcut QPM 30 days 9 mL 4RF To insulin glargine (Lantus Solostar U-100 Insulin) 28 units (0.28 mL) subcut QPM 90 days 28 mL 4RF Refilled pen needle, diabetic (BD Ultra-Fine Micro Pen Needle) Dx: E11.9, Daily to treat Blood sugar, 90 day supply 100 ea 3RF Discontinued glipizide Discontinued Reason: Doctor's Order 5 mg PO DAILY 30 days 30 tabs 3RF Coding Level of Care Code Est Pt Level 3 (12693) Diagnoses Essential hypertension I10 Diabetes E11.9
== END 2024-03-29 15:32 | disposition home or self-care (01) ==
PROVIDERS: PCP Family Medicine; Visit Provider Family Medicine
DX: I10 Essential (primary) hypertension (principal); E11.9 Type 2 diabetes mellitus without complications
CPT/HCPCS: 83036; 99214